=== PATIENT | female | born 1980 | race Caucasian/White ===

== ENCOUNTER 2023-10-07 18:04 | Emergency (ER) | payer OTHER ==
[2023-10-07 18:20] VITALS: RESP 18; TEMP 98.7; O2SAT 100
[2023-10-07] MEDS ORDERED: DECADRON 10MG INJ. ONE (18:22)
[2023-10-07] MEDS ORDERED: TYLENOL 325 MG ONE (18:22)
[2023-10-07] MEDS: TYLENOL 325 MG PO ONE (18:24)
[2023-10-07] MEDS: DECADRON 10MG INJ. IM ONE (18:24)
--- NOTE | 2023-10-07 18:24 | ERPHSYRPT ---
- History of Present Illness Time Seen by Provider: 10/07/23 18:21 Source: patient Exam Limitations: no limitations Physician History: 42-year-old female presents to our ED for evaluation of low back pain. Patient has history of chronic low back pain. Patient was lifting when she reinjured her back. Pain described as an ache that is localized. No radiation. Pain worse with movement and palpation pain improved with rest. Patient has no urinary symptomology. No blunt trauma. No change in bowel bladder function. No fever no recent back procedures no saddle anesthesia. Symptoms are mild to moderate in intensity. Symptoms are worse with movement and palpation. Pain improved with rest. Patient otherwise voices no other complaints or concerns at this time. Portions of this note were created with voice recognition technology. There may be grammatical, spelling, punctuation or sound alike errors Timing/Duration: today Method of Injury: lifting Quality: dull Back Pain Location: lumbar spine Back Pain Radiation: upper legs Severity of Pain-Max: moderate Severity of Pain-Current: mild Modifying Factors: Improves With: movement Associated Symptoms: denies symptoms Previous symptoms: same symptoms as today Allergies/Adverse Reactions: ketorolac [From Toradol] Allergy (Verified 10/07/23 18:12) Rash tramadol Allergy (Verified 10/07/23 18:12) Rash Home Medications: No Reportable Medications [No Reported Medications] 10/07/23 [History] - Review of Systems Constitutional: No Symptoms, No Fever, No Chills Eyes: No Symptoms Ears, Nose, & Throat: No Symptoms Respiratory: No Symptoms, No Cough, No Dyspnea Cardiac: No Symptoms, No Chest Pain, No Edema, No Syncope Abdominal/Gastrointestinal: No Symptoms, No Abdominal Pain, No Nausea, No Vomiting, No Diarrhea Genitourinary Symptoms: No Symptoms, No Dysuria Musculoskeletal: No Symptoms, No Back Pain, No Neck Pain Skin: No Symptoms, No Rash Neurological: No Symptoms, No Dizziness, No Focal Weakness, No Sensory Changes Psychological: No Symptoms Endocrine: No Symptoms Hematologic/Lymphatic: No Symptoms Immunological/Allergic: No Symptoms All Other Systems: Reviewed and Negative - Nursing Vital Signs Nursing Vital Signs: Initial Vital Signs Blood Pressure 139/84 10/07/23 18:11 O2 Sat by Pulse Oximetry 100 10/07/23 18:11 Pain Scale Pain Intensity [Back] 3 Pain Intensity 3 - Physical Exam General Appearance: no apparent distress, alert Eye Exam: PERRL/EOMI, eyes nml inspection Neck Exam: normal inspection, non-tender, supple, full range of motion, No meningismus, No midline tenderness Respiratory Exam: normal breath sounds, lungs clear, airway intact, No respiratory distress Cardiovascular Exam: regular rate/rhythm, normal heart sounds, normal peripheral pulses Gastrointestinal Exam: soft, No tenderness, No mass Extremity Exam: normal inspection, normal range of motion, No calf tenderness, No pedal edema Neurologic Exam: alert, oriented x 3, cooperative, marketing technology coordinator II-XII nml as tested, normal mood/affect, nml station & gait, sensation nml, No motor deficits Skin Exam: normal color, warm, dry, No rash Lymphatic Exam: No adenopathy SpO2 Interpretation: normal SpO2: 100 O2 Delivery: Room Air - Course Nursing assessment & vital signs reviewed: Yes Ordered Tests: Medication Summary Discontinued Medications Generic Name Dose Route Start Last Admin Trade Name Suzanne PRN Reason Stop Dose Admin Acetaminophen 975 mg 10/07/23 18:20 10/07/23 18:24 Acetaminophen 325 Mg Tablet PO 10/07/23 18:21 975 mg STAT ONE Administration Acetaminophen Confirm 10/07/23 18:22 Acetaminophen 325 Mg Tablet Administered 10/07/23 18:23 Dose 975 mg .ROUTE .STK-MED ONE Dexamethasone Sodium Phosphate 8 mg 10/07/23 18:20 10/07/23 18:24 Dexamethasone Sod Phosphate 10 Mg/Ml IM 10/07/23 18:21 8 mg STAT ONE Administration Dexamethasone Sodium Phosphate Confirm 10/07/23 18:22 Dexamethasone Sod Phosphate 10 Mg/Ml Administered 10/07/23 18:23 Dose 10 mg .ROUTE .STK-MED ONE - Progress Progress: improved Progress Note: 42-year-old female presents to our ED for evaluation of low back pain. Patient was lifting a box when she injured her back. Pain described as an ache that is localized. Physical exam otherwise nonremarkable. Patient received a dose of Decadron. Patient allergic to tramadol and Toradol. Tylenol administered as well. Patient improved. Steroids. Require additional time for full effect. Patient had to be discharged home and agrees to follow-up with her primary care doctor within 48 hours for reevaluation. Complexity problem addressed is moderate acute complicated. No critical care time. Complexity of data reviewed and analyzed is none. Diagnosis made based on history and physical exam. No specialized testing ordered. Risk of complication and or risk of morbidity/mortality patient management is low. Vital stable. Time spent to discharge patient is approximately 15 minutes. Plan of care established for shared decision making. No social determinants of health present impede follow-up. Portions of this note were created with voice recognition technology. There may be grammatical, spelling, punctuation or sound alike errors 10/08/23 02:12 10/08/23 02:13 Counseled pt/family regarding: diagnosis, need for follow-up, rad results - Departure Departure Disposition: Home Clinical Impression: Lumbosacral strain Condition: Stable Critical Care Time: No Referrals: DOCTOR,NO FAMILY [Primary Care Provider] - Follow up/PCP as directed NAIN TAYLOR DO [ACTIVE STAFF] - Follow up/PCP as directed Instructions: Low Back Pain (DC) Additional Instructions: Discharge/Care Plan NARGISMARIA GUADALUPE ADELA was seen on 10/08/23 in the Emergency Room. The patient was counseled regarding Diagnosis,Lab results, Imaging studies, need for follow up and when to return to the Emergency Room. Prescriptions given: Discharge Note I have spoken with the patient and/or caregivers. I have explained the patient's condition, diagnosis and treatment plan based on the information available to me at this time. I have answered the patient's and/or caregiver's questions and addressed any concerns. The patient and/or caregivers have as good understanding of the patient's diagnosis, condition and treatment plan as can be expected at this point. The vital signs have been stable. The patient's condition is stable and appropriate for discharge from the emergency department. The patient will pursue further outpatient evaluation with the primary care physician or other designated or consulting physician as outlined in the discharge instructions. The patient and/or caregivers are agreeable to this plan of care and follow-up instructions have been explained in detail. The patient and/or caregivers have received these instruction. The patient/and or caregivers are aware that any significant change in condition or worsening of symptoms should prompt an immediate return to this or the closest emergency department or call 911.
[2023-10-07 18:48] VITALS: BP 128/78; PULSE 82
== END 2023-10-07 18:47 | disposition home or self-care (01) ==
LOC: ED 18:04
DX: S39.012A Strain of muscle, fascia and tendon of lower back, initial encounter (principal); X50.0XXA Overexertion from strenuous movement or load, initial encounter
CPT/HCPCS: 96372; 99283; J1100; A9270-GY

== ENCOUNTER 2024-05-16 21:10 | Emergency (ER) | payer OTHER ==
--- NOTE | 2024-05-16 21:29 | ERPHSYRPT ---
- History of Present Illness Source: patient Exam Limitations: no limitations Physician History: Patient has history of degenerative disc disease. She is having some back pain is in the lumbar area. It causes some radicular symptoms on the right side. Mainly on the lateral aspect of the leg. She says it is more like [id number]. Sitting makes it worse standing relieves it for a little bit. She says lying down flat makes it the best.She does not have a bowel or bladder dysfunction and no saddle paresthesias.She has had MRIs and other imaging done. She says that she is a surgical candidate but is holding off. The symptoms been going on for about 3 days. Allergies/Adverse Reactions: ketorolac [From Toradol] Allergy (Verified 05/16/24 21:18) Rash tramadol Allergy (Verified 05/16/24 21:18) Rash Home Medications: Albuterol 8 gm Mdi Hfa [Ventolin Hfa MDI] 2 puff IH Q4HPRN PRN 05/16/24 [History] Buprenorphine HCl/Naloxone HCl [Suboxone 8 mg-2 mg Sl Film] 0.5 film SL QID 05/16/24 [History] Levothyroxine Sodium 100 mcg PO DAILY 05/16/24 [History] Nortriptyline HCl 25 mg PO DAILY 05/16/24 [History] Hx Tetanus, Diphtheria Vaccination/Date Given: Yes Hx Influenza Vaccination/Date Given: No Hx Pneumococcal Vaccination/Date Given: No Travel Risk - Emerging Infectious Disease Are you exhibiting symptoms associated with any current EIDs: No - Review of Systems Constitutional: No Symptoms Eyes: No Symptoms Musculoskeletal: Back Pain Neurological: Other (Radicular symptoms) - Past Medical History Pertinent Past Medical History: No - Past Surgical History Past Surgical History: Yes Gastrointestinal: Cholecystectomy Musculoskeletal: Orthopedic Surgery Female Surgical History: Section, Tubal Ligation Other Surgical History: c- section x 3, 2 back surgery, breast reduction - Social History Smoking Status: Never smoker Exposure to second hand smoke: No Drug Use: none - Social Determinants of Health Will the patient participate in the screening: Yes Do you worry about a steady place to live?: No In the past 12 months,have you had to go without utilities?: No Transportation Issues: No Has anyone in your support network made you feel unsafe?: No Have you or anyone in your house had to go w/o enough food: No - Physical Exam General Appearance: no apparent distress Back Exam: normal inspection, decreased range of motion, other (Straight leg test is positive on the right.) Extremity Exam: normal inspection, normal range of motion, pelvis stable Neurologic Exam: alert, oriented x 3, cooperative, sensation nml, No motor deficits, No sensory deficit Skin Exam: normal color, warm, dry - Course Nursing assessment & vital signs reviewed: Yes - Progress Progress: unchanged Progress Note: At this time it seems like the patient just has flareup of her degenerative disc disease. There is no worrisome signs or symptoms to indicate a neurological emergency. She is already on Suboxone at home some days going to give her some prednisone. She is to follow-up with her primary doctor and return if symptoms worsen 05/16/24 21:28 - Departure Departure Disposition: Home Clinical Impression: Lumbar degenerative disc disease Condition: Stable Critical Care Time: No Referrals: MIREILLE GUEVARA MD [Primary Care Provider] - Follow up/PCP as directed
[2024-05-16 21:35] VITALS: RESP 18; TEMP 97.7; O2SAT 100
[2024-05-16] MEDS ORDERED: DELTASONE 20 MG ONE (21:36)
[2024-05-16] MEDS: DELTASONE 20 MG PO ONE (21:36)
[2024-05-16 21:42] VITALS: BP 141/80; PULSE 76
== END 2024-05-16 21:40 | disposition home or self-care (01) ==
LOC: ED 21:10
DX: M51.369 Other intervertebral disc degeneration, lumbar region without mention of lumbar back pain or lower extremity pain (principal); Z79.52 Long term (current) use of systemic steroids; Z79.891 Long term (current) use of opiate analgesic; Z79.899 Other long term (current) drug therapy
CPT/HCPCS: 99281; 99283; A9270-GY

== ENCOUNTER 2024-06-09 21:41 | Emergency (ER) | payer OTHER ==
--- NOTE | 2024-06-09 21:50 | ERPHSYRPT ---
- History of Present Illness Time Seen by Provider: 06/09/24 21:50 Source: patient Exam Limitations: no limitations Physician History: This is an obese 43-year-old white female patient who arrives with private vehicle with a complaint of jamming her right first toe into a curb accidentally. Patient was wearing sandals. She is able to ambulate. Patient has a history of hypothyroidism and COPD. Method of Injury: other (Toe versus curb) Occurred: just prior to arrival Severity of Pain-Max: mild Severity of Pain-Current: mild Lower Extremities Pain: 1st toe: right Modifying Factors: Improves With: movement Associated Symptoms: other (Has pain when ambulating) Allergies/Adverse Reactions: ketorolac [From Toradol] Allergy (Verified 06/09/24 21:45) Rash tramadol Allergy (Verified 06/09/24 21:45) Rash Home Medications: Albuterol 8 gm Mdi Hfa [Ventolin Hfa MDI] 2 puff IH Q4HPRN PRN 05/16/24 [History] Buprenorphine HCl/Naloxone HCl [Suboxone 8 mg-2 mg Sl Film] 0.5 film SL QID 05/16/24 [History] Levothyroxine Sodium 100 mcg PO DAILY 05/16/24 [History] Methylphenidate HCl [Methylphenidate ER] 18 mg PO DAILY 06/09/24 [History] Hx Tetanus, Diphtheria Vaccination/Date Given: Yes Hx Influenza Vaccination/Date Given: No Hx Pneumococcal Vaccination/Date Given: No Travel Risk - International Travel Have you traveled outside of the country in past 3 weeks: No - Emerging Infectious Disease Are you exhibiting symptoms associated with any current EIDs: No - Review of Systems Constitutional: No Symptoms Eyes: No Symptoms Ears, Nose, & Throat: No Symptoms Respiratory: No Symptoms Cardiac: No Symptoms Abdominal/Gastrointestinal: No Symptoms Genitourinary Symptoms: No Symptoms Musculoskeletal: Injury (Injury to right first toe) Skin: No Symptoms Neurological: No Symptoms Psychological: No Symptoms Endocrine: No Symptoms Hematologic/Lymphatic: No Symptoms Immunological/Allergic: No Symptoms All Other Systems: Reviewed and Negative - Past Medical History Pertinent Past Medical History: No - Past Surgical History Past Surgical History: Yes Gastrointestinal: Cholecystectomy Musculoskeletal: Orthopedic Surgery Female Surgical History: Section, Tubal Ligation Other Surgical History: c- section x 3, 2 back surgery, breast reduction - Social History Smoking Status: Never smoker Exposure to second hand smoke: No Drug Use: none - Social Determinants of Health Will the patient participate in the screening: Yes Do you worry about a steady place to live?: No In the past 12 months,have you had to go without utilities?: No Transportation Issues: No Has anyone in your support network made you feel unsafe?: No Have you or anyone in your house had to go w/o enough food: No - Nursing Vital Signs Nursing Vital Signs: Initial Vital Signs Temperature 98.9 F 06/09/24 21:45 Pulse Rate 68 06/09/24 21:45 Respiratory Rate 19 06/09/24 21:45 Blood Pressure 129/76 06/09/24 21:45 O2 Sat by Pulse Oximetry 100 06/09/24 21:45 Pain Scale Pain Intensity 3 - Physical Exam General Appearance: no apparent distress, alert, obese Eyes, Ears, Nose, Throat Exam: moist mucous membranes (Patient is edentulous) Gastrointestinal/Abdominal Exam: non-tender Back Exam: normal inspection, normal range of motion, No CVA tenderness Hips Exam: bilateral: non-tender, normal inspection, normal range of motion, no evidence of injury Legs Exam: bilateral leg: non-tender, normal inspection, normal range of motion, no evidence of injury Knees Exam: bilateral knee: non-tender, normal inspection, normal range of mo tion, no evidence of injury Ankle Exam: bilateral ankle: non-tender, normal inspection, normal range of motion, no evidence of injury Foot Exam: right foot: bone tenderness (Right first toe), soft tissue tenderness (Right first toe), left foot: non-tender, bilateral foot: normal inspection, normal range of motion, no evidence of injury Neuro/Tendon Exam: normal sensation, normal motor functions, normal tendon functions, responds to pain, no evidence tendon injury Mental Status Exam: alert, oriented x 3, cooperative Skin Exam: normal color, warm, dry SpO2 Interpretation: normal O2 Delivery: Room Air - Course Nursing assessment & vital signs reviewed: Yes Ordered Tests: Active Orders 24 hr Category Date Time Status FOOT (MINIMUM 3 VIEWS) Stat Exams 06/09/24 21:51 Taken - Progress Progress: unchanged Progress Note: 06/09/24 22:13 My medical decision making and the assignment of low complexity to this patient's medical issue today is based on review of the patient's past medical history, review of the patient's medication list, reviewed the patient drug allergy list, history present illness and physical findings on examination. The workup in this patient includes x-ray of the patient's right foot. Differential diagnosis includes but is not limited to fracture/ dislocation/contusion right first toe I interpreted the preliminary report of the patient's right foot x-ray. I do not see an acute fracture or dislocation. Patient is aware this is just a preliminary reading and she will have a final reading tomorrow by the radiologist. She is aware that she will get a phone call tomorrow, 06/10/2024 if the interpretation by the radiologist differs from mine. Counseled pt/family regarding: diagnosis, need for follow-up, rad results - Departure Departure Disposition: Home Clinical Impression: Contusion of toe of right foot Condition: Stable Critical Care Time: No Referrals: MIREILLE GUEVARA MD [Primary Care Provider] - Follow up/PCP as directed Additional Instructions: Ice bath/pack to tender foot/toes 3 times a day for the next 3 days. If you have no contraindications, take Tylenol for your pain control. Call your primary care provider tomorrow, 06/10/2024 for further evaluation and management.
[2024-06-09 21:52] VITALS: TEMP 98.9
[2024-06-09 22:19] VITALS: BP 117/71; PULSE 69; RESP 18; O2SAT 99
--- NOTE | 2024-06-10 09:12 | XRAY ---
Indication: Pain following injury. Comparison: None 3 nonweightbearing views right foot demonstrates soft tissue swelling lateral to 5th MTP. No other bony, articular, or soft tissue abnormalities.
== END 2024-06-09 22:22 | disposition home or self-care (01) ==
LOC: ED 21:41
DX: S90.111A Contusion of right great toe without damage to nail, initial encounter (principal); W22.09XA Striking against other stationary object, initial encounter; Z79.891 Long term (current) use of opiate analgesic; Z79.899 Other long term (current) drug therapy
CPT/HCPCS: 73630; 99282; 99283